=== PATIENT | male | born 1945 | race Caucasian/White ===

== ENCOUNTER → 2017-04-21 08:38 | Outpatient (CLI) | payer OTHER, SELFPAY ==
[2017-04-21 09:54] LABS: AST(SGOT) 15 U/L (15-37); Alanine Aminotransfer ALT/SGPT 11 U/L (16-61); Albumin, Serum 3.6 g/dL (3.2-5.0); Alkaline Phosphatase 76 U/L (45-117); Bilirubin, Direct 0.13 mg/dL (0.00-0.30); Cholesterol 130 mg/dL (200); Globulin 3.9 g/dL (2.2-4.2); High Density Lipoprotein 32 mg/dL; Protein, Total 7.5 g/dL (6.4-8.2); Triglycerides 113 mg/dL; Very Low Density Lipoprotein 23 mg/dL (5-40)
== END ==
PROVIDERS: Family Provider Family Medicine; PCP Family Medicine; Visit Provider Internal Medicine Cardiovascular Disease
DX: E78.5 Hyperlipidemia, unspecified (principal); Z79.899 Other long term (current) drug therapy
CPT/HCPCS: 36415; 80061; 80076

== ENCOUNTER → 2017-06-28 15:08 | Outpatient (CLI) | payer OTHER, SELFPAY ==
[2017-06-28 16:17] LABS: Anion Gap 7 (5-15); BUN 16 mg/dL (7-18); BUN/Creat Ratio 15.4 RATIO (10-20); Chloride 109 mmol/L (98-107); Creatinine, Serum 1.04 mg/dL (0.70-1.30); EST Glomerular Filtration Rate 75 mL/min (>60); Est Glom Filt Rate - Afr Amer 90 mL/min (>60); Glucose 118 mg/dL (74-106); Magnesium 2.2 mg/dL (1.6-2.6); Potassium 4.3 mmol/L (3.5-5.1); Sodium Level 141 mmol/L (136-145); Thyroid Stim Hormone (TSH) 3.57 uIU/mL (0.358-3.74)
== END ==
PROVIDERS: Family Provider Family Medicine; PCP Family Medicine; Visit Provider Internal Medicine Cardiovascular Disease
DX: I48.0 Paroxysmal atrial fibrillation (principal)
CPT/HCPCS: 36415; 80048; 83735; 84443

== ENCOUNTER → 2017-11-07 08:35 | Outpatient (CLI) | payer OTHER, SELFPAY ==
[2017-11-07 09:37] LABS: AST(SGOT) 17 U/L (15-37); Alanine Aminotransfer ALT/SGPT 13 U/L (16-61); Albumin, Serum 3.5 g/dL (3.2-5.0); Alkaline Phosphatase 73 U/L (45-117); Bilirubin, Direct 0.13 mg/dL (0.00-0.30); Cholesterol 139 mg/dL (200); Globulin 4.3 g/dL (2.2-4.2); High Density Lipoprotein 33 mg/dL; Protein, Total 7.8 g/dL (6.4-8.2); Triglycerides 123 mg/dL; Very Low Density Lipoprotein 25 mg/dL (5-40)
== END ==
PROVIDERS: Family Provider Family Medicine; PCP Family Medicine; Visit Provider Internal Medicine Cardiovascular Disease
DX: E78.5 Hyperlipidemia, unspecified (principal); Z79.899 Other long term (current) drug therapy
CPT/HCPCS: 36415; 80061; 80076

== ENCOUNTER → 2018-03-10 12:21 | Outpatient (CLI) | payer OTHER, SELFPAY ==
[2018-03-10 11:35] VITALS: BMI 42.7
[2018-03-10 12:43] LABS: Absolute Lymphocyte Count 2.59 X10^3/ul (0.83-4.51); Absolute Neutrophil Count 8.4 X10^3/uL (2.0-7.7); Basophil# 0.01 X10^3/uL; Basophil% 0.1 % (0-1); Eosinophil# 0.08 X10^3/uL; Eosinophils% 0.7 % (0-5); Hematocrit 44.4 % (40-54); Hemoglobin 14.2 g/dl (13.0-16.5); Lymphocyte # 2.59 X10^3/ul (4.0); Lymphocyte % 21.4 % (19-41); Mean Corpuscular Volume 87.4 fL (80-94); Mean Platelet Vol. 9.8 fl (6.2-12.0); Monocyte# 0.85 X10^3/uL; Neutrophil # 8.43 X10^3/uL (2.7-7.7); Neutrophil % 69.5 % (47-70); Platelet Count 271 K/mm3 (150-450); RBC Distribution Width SD 41.2 fl (35.1-43.9); Red Blood Count 5.08 M/mm3 (4.6-6.2); White Blood Count 12.1 K/mm3 (4.4-11.0)
[2018-03-10 12:45] LABS: POSITIVE COUNT NO; POSITIVE DIFFERENTIAL NO; POSITIVE MORPHOLOGY NO
[2018-03-10 13:08] LABS: Anion Gap 4 (5-15); BUN 17 mg/dL (7-18); BUN/Creat Ratio 16.3 RATIO (10-20); Calcium,Total 8.5 mg/dL (8.5-10.1); Chloride 106 mmol/L (98-107); Creatinine, Serum 1.04 mg/dL (0.70-1.30); EST Glomerular Filtration Rate 75 mL/min (>60); Est Glom Filt Rate - Afr Amer 90 mL/min (>60); Glucose 114 mg/dL (74-106); Potassium 4.3 mmol/L (3.5-5.1); Sodium Level 141 mmol/L (136-145)
[2018-03-10 13:14] LABS: BNP,B-Type NATRIURETIC PEPTIDE 401.3 pg/mL (0-100)
== END ==
PROVIDERS: Family Provider Family Medicine; PCP Family Medicine; Referring Provider Nurse Practitioner Family; Visit Provider Nurse Practitioner Family
DX: I25.5 Ischemic cardiomyopathy (principal); R06.09 Other forms of dyspnea; R07.9 Chest pain, unspecified; R60.9 Edema, unspecified
CPT/HCPCS: 36415; 80048; 83880; 84484; 85025

== ENCOUNTER → 2018-07-04 09:08 | Outpatient (CLI) | payer OTHER, SELFPAY ==
[2018-06-29 11:24] VITALS: BMI 42.0
[2018-07-04 13:14] LABS: AST(SGOT) 15 U/L (15-37); Alanine Aminotransfer ALT/SGPT 12 U/L (16-61); Albumin, Serum 3.6 g/dL (3.2-5.0); Alkaline Phosphatase 68 U/L (45-117); Bilirubin, Direct 0.13 mg/dL (0.00-0.30); Cholesterol 136 mg/dL (200); Globulin 4.1 g/dL (2.2-4.2); High Density Lipoprotein 34 mg/dL; Protein, Total 7.7 g/dL (6.4-8.2); Triglycerides 102 mg/dL; Very Low Density Lipoprotein 20 mg/dL (5-40)
== END ==
PROVIDERS: Family Provider Family Medicine; PCP Family Medicine; Referring Provider Internal Medicine Cardiovascular Disease; Visit Provider Internal Medicine Cardiovascular Disease
DX: E78.00 Pure hypercholesterolemia, unspecified (principal)
CPT/HCPCS: 36415; 80061; 80076

== ENCOUNTER → 2018-11-06 12:18 | Outpatient (CLI) | payer MEDICARE, SELFPAY ==
[2018-11-06 12:11] VITALS: BMI 42.0
== END ==
PROVIDERS: Family Provider Family Medicine; PCP Family Medicine; Referring Provider Nurse Practitioner Family; Visit Provider Nurse Practitioner Family
DX: I25.10 Atherosclerotic heart disease of native coronary artery without angina pectoris (principal); R07.9 Chest pain, unspecified; I25.5 Ischemic cardiomyopathy; I10 Essential (primary) hypertension; Z95.1 Presence of aortocoronary bypass graft
CPT/HCPCS: 36415; 84484

== ENCOUNTER 2019-02-10 15:13 | Inpatient (IN) | payer MEDICARE, OTHER, SELFPAY ==
[2019-01-23 12:00] VITALS: BMI 41.5
[2019-02-10] VITALS (14 sets, daily range): BP systolic 87–180; BP diastolic 65–155; PULSE 62–133; RESP 14–20; TEMP 36.4–36.6; O2SAT 91–96; BMI 40.6; BMI 42.7; BMI 42.8
--- NOTE | 2019-02-10 15:25 | RAD_ITS ---
STUDY: X-RAY CHEST REASON FOR EXAM: Male, 73 years old. HEART RATE RUNNING HIGH. HAS BEEN SHOCKED BY HIS DEFIBRILLATOR MULTIPLE TIMES -- HX CHF, SC, STENTS, QUAD CABG TECHNIQUE: AP COMPARISON: 06/07/2015 FINDINGS: EKG leads project over the chest. Cardiac conduction device is stable. Sternal wires and mediastinal surgical clips compatible with prior CABG. Atrial appendage clip noted. The lungs are clear and expanded. There is no demonstrated pleural abnormality. Normal size heart. Normal mediastinum and oksana. Normal visualized pulmonary arteries. There is atherosclerotic tortuosity of the aortic arch and descending thoracic aorta. No acute bony process. There is no demonstrated abnormality of the visualized soft tissue structures of the upper abdomen. RAD/Chest 1 View (Portable) IMPRESSION: Stable, nonacute portable x-ray examination of the chest. Electronically Signed: Cuco Mistry MD (Brooks) at 16:00 EST , Service support ,
--- NOTE | 2019-02-10 15:25 | EKG12_ITS ---
Test Reason : AICD FIRED Blood Pressure : / mmHG Vent. Rate : 161 BPM Atrial Rate : 170 BPM P-R Int : 000 ms QRS Dur : 072 ms QT Int : 302 ms P-R-T Axes : 000 022 073 degrees QTc Int : 494 ms Atrial fibrillation with rapid ventricular response with premature ventricular or aberrantly conducte d complexes Nonspecific ST abnormality Abnormal ECG Confirmed by GIA BENNETT, TIMOTHY ([id number]), sound editor JC [place] ([id number]) on 02/13/2019 10:00:10 AM Referred By: NORMA Confirmed By:TIMOTHY NIELSEN MD
--- NOTE | 2019-02-10 15:30 | ED.DCSUM_ITS ---
- ER Visit Summary Date of Service: 02/10/19 Chief Complaint: AICD fired History of Present Illness: The patient is a 73 M with a history of a [place] AICD placed in [facility] about 6 years ago. He has a history of paroxysmal atrial fibrillation, V. fib, cardiomyopathy, coronary disease, CHF, hypert ension, and hyperlipidemia. He takes aspirin as well as Xarelto daily. He says he is compliant with Xarelto but sometimes does not take aspirin. Today he forgot to take his Toprol and sotalol this morning. He felt a little funny and so he took his medicine around 3 PM, shortly prior to arrival. After he took his medication his AICD fired 1 time. He currently has no symptoms. Physical Examination: Afebrile and vital signs unremarkable except for a blood pressure of 180/155 and heart rate of 133. Patient is alert and oriented and in no acute distress. Heart irregularly irregular and tachycardic. Lungs clear. Abdomen soft. Extremities nontender. Strong equal pulses. Skin appears unremarkable. Test Results: EKG shows atrial fibrillation with a rate of [address] segment changes. Laboratory studies and chest x-ray are pending. Emergency Department Course and Treatment: Patient was placed on a monitor. Treated with a fluid bolus 500 cc and IV metoprolol. Will interrogate the pacemaker. Will check labs and x-ray as well. Workup was all fairly unremarkable. Metoprolol did not change his heart rate or rhythm. She was discussed with Dr. Ponce. Patient gave consent for cardioversion. He was sedated with propofol. He tolerated this well. He was cardioverted up to 360 J but remained in atrial fibrillation with RVR. Patient was discussed with Dr. Ponce again he started on Cardizem. Hospitalist will admit for further care. Treatment Plan: As above Disposition: Admission Impression: A. fib with RVR This note was generated with [employer] dictation software. It may contain incorrect words, spelling, and punctuation that were not noted in review of the chart prior to signing ED Disposition - Plan for ED Patient: Referrals: Trell Edwards MD [Primary Care Provider] -
[2019-02-10] MEDS: Aspirin 81 MG TAB.CHEW 324 MG PO (15:39)
[2019-02-10 15:40] LABS: Absolute Lymphocyte Count 2.32 X10^3/uL (0.83-4.51); Absolute Neutrophil Count 4.1 X10^3/uL (2.0-7.7); Basophil# 0.03 X10^3/uL; Basophil% 0.4 % (0-1); Eosinophil# 0.18 X10^3/uL; Eosinophils% 2.4 % (0-5); Hematocrit 45.1 % (40-54); Hemoglobin 15.2 g/dL (13.0-16.5); Lymphocyte # 2.32 X10^3/ul (4.0); Lymphocyte % 31.5 % (19-41); Mean Corp Hgb Conc 33.7 g/dL (32-36); Mean Corpuscular Hgb 29.2 pg (27.0-32.0); Mean Corpuscular Volume 86.6 fL (80-94); Monocyte# 0.74 X10^3/uL; NRBC Flagged by Analyzer 0 % (0-5); Neutrophil # 4.06 X10^3/uL (2.7-7.7); Neutrophil % 55.2 % (47-70); Platelet Count 160 K/mm3 (150-450); RBC Distribution Width CV 13.2 % (11.6-14.6); Red Blood Count 5.21 M/mm3 (4.6-6.2); White Blood Count 7.4 K/mm3 (4.4-11.0)
[2019-02-10] MEDS: Metoprolol Tartrate 5 MG/5 ML Vial IV ×3 (15:40→16:03)
[2019-02-10 15:53] LABS: Anion Gap 6 (5-15); BUN 15 mg/dL (7-18); BUN/Creat Ratio 12.6 RATIO (10-20); Calcium,Total 8.7 mg/dL (8.5-10.1); Chloride 109 mmol/L (98-107); Creatinine, Serum 1.19 mg/dL (0.70-1.30); EST Glomerular Filtration Rate 64 mL/min (>60); Est Glom Filt Rate - Afr Amer 77 mL/min (>60); Estimated Creatinine Clearance 60.68 ml/min; Glucose 131 mg/dL (74-106); Magnesium 1.8 mg/dL (1.6-2.6); Potassium 3.8 mmol/L (3.5-5.1); Sodium Level 142 mmol/L (136-145)
--- NOTE | 2019-02-10 16:38 | NURSING ---
LISA INTERIGATOR, IS HERE
[2019-02-10] MEDS: dilTIAZem 25 MG/5 ML Vial 20 MG IV BOLUS (18:00)
[2019-02-10] MEDS: Propofol 200 MG/20 ML Vial IV BOLUS (18:00)
--- NOTE | 2019-02-10 18:08 | ED.RN ---
PT WITH AFIB RVR, CARDIOVERSION GIVEN WITH THE FOLLOWIN 50 MG PROPOFOL GIVEN BY DR. BULLOCK 174 150 JOULES DELIVERED WITH SYNCED SHOCK 1746 200 JOULES DELIVERED WITH SYNCED SHOCK 174 30 MG PROPOFOL GIVEN BY DR. BULLOCK 174 250 JOULES DELIVERED WITH SYNCED SHOCK 1755 40 MG PROPOFOL GIVEN BY DR. BULLOCK 175 300 JOULES DELIVERED WITH SYNCED SHOCK 1758 360 JOULES DELIVERED WITH SYNCED SHOCK
--- NOTE | 2019-02-10 18:14 | NURSING ---
PCU AFIB JUNAID
--- NOTE | 2019-02-10 18:33 | PCM.HP.STD ---
History of Present Illness Date of Admission: 02/10/19 Chief Complaint: Afib The patient is a 73 year old M with a PMH as below who presents from a basketball game with Giles schaeffer. He states that he is supposed to be on sotalol and metoprolol twice daily, but he thinks that he forgot last night's dose and he knows that he forgot this morning's dose. He noticed on his iWatch that his heart rate was little bit high and so he went home to take his medications and then when he returned again he was not feeling right and he decided to come to the ER. In the ER he was found to have heart rate sustained in the 150s and cardioversion was attempted multiple times up to 360 J and they were not able to have a successful cardioversion. He was given 3 doses of Lopressor and then was given a 20 mg bolus of Cardizem and started on Cardizem drip. He is not a candidate for amiodarone given his sotalol. Past Medical History Past Medical History (Chronic Problems): Chronic Problems (Last Reviewed 01/23/19 @ 14:32 by Ankur Rascon MD) Dyspnea on exertion (Chronic) Ventricular fibrillation (Chronic) Atherosclerotic heart disease of [place] coronary artery without angina pectoris (Chronic) CABG X 4 - NG-LAD, SVG-D1, SVG-OM1, SVG-RPDA w/ exclusion of SARBJIT w/ 40 mm AtriClip 06/11/15 Ischemic cardiomyopathy (Chronic) History of implantable cardiac defibrillator (ICD) (Chronic 10/01/11) Chronic systolic (congestive) heart failure (Chronic) Supraventricular arrhythmia (Chronic) Paroxysmal atrial fibrillation (Chronic) Essential hypertension (Chronic) Hyperlipidemia (Chronic) Medical History: Medical History (Last Reviewed 01/23/19 @ 14:32 by Ankur Rascon MD) Dyspnea on exertion (Chronic) R06.09 Ventricular fibrillation (Chronic) I49.01 Atherosclerotic heart disease of [place] coronary artery without angina pectoris (Chronic) I25.10 CABG X 4 - NG-LAD, SVG-D1, SVG-OM1, SVG-RPDA w/ exclusion of SARBJIT w/ 40 mm AtriClip 06/11/15 Ischemic cardiomyopathy (Chronic) I25.5 Chronic systolic (congestive) heart failure (Chronic) I50.22 Supraventricular arrhythmia (Chronic) I49.9 Paroxysmal atrial fibrillation (Chronic) I48.0 Essential hypertension (Chronic) I10 Hyperlipidemia (Chronic) E78.5 GERD (gastroesophageal reflux disease) K21.9 Hypothyroidism E03.9 Obstructive sleep apnea G47.33 Other and unspecified peripheral vertigo H81.319 Allergies No Known Allergies Allergy (Verified 02/10/19 15:18) Home Medications: Ambulatory Orders Medication Instructions Recorded Aspirin [Aspirin, Baby] 81 mg PO DAILY@0800 90 Days 08/01/14 tab.chew Nitroglycerin (INPATIENT USE) 0.4 mg SUBLINGUAL Q5M PRN 07/22/15 [Nitrostat] sotalol 120 mg tablet 120 mg PO Q12H #180 tab 04/15/18 levothyroxine 75 mcg tablet 75 mcg PO DAILY #90 tab 10/03/18 losartan 25 mg tablet 25 mg PO DAILY #90 tab 10/17/18 rivaroxaban 20 mg tablet 20 mg PO DAILY #90 tab 10/17/18 omeprazole 20 mg capsule,delayed 20 mg PO DAILY #90 cap 12/15/18 release metoprolol succinate 100 mg 100 mg PO BID #180 tab 12/26/18 tablet,extended release 24 hr rosuvastatin 10 mg tablet 10 mg PO .Mon, Wed, Fri #60 tab 12/26/18 Surgical History: Surgical History (Last Reviewed 01/23/19 @ 14:32 by Ankur Rascon MD) H/O coronary artery bypass surgery (Resolved) Onset Date: 06/11/15 Z95.1 CABG X 4 - NG to LAD, SVG to diag 1, OM & PDA, 06/11/15 History of implantable cardiac defibrillator (ICD) (Chronic) Onset Date: 10/01/11 Surgical History: - - colonosocpies,egd Smoking Status: Never smoker Alcohol: None Drugs: None - *Family History Maternal Family History: Family History (Last Reviewed 01/23/19 @ 14:32 by Ankur Rascon MD) Father CVA (cerebral vascular accident) History Items: - - mother with dementia Paternal Family History: Family History (Last Reviewed 01/23/19 @ 14:32 by Ankur Rascon MD) Father CVA (cerebral vascular accident) History Items: - - father with a cva Review of Systems Constitutional: Denies: Chills, Fever, Weight Change HEENT: Denies: Head Aches, Sinus Congestion, Sinus Drainage Cardiovascular: Reports: Palpitations. Denies: Chest Pain Respiratory: Denies: Cough, Shortness of breath at rest, Sputum production Gastrointestinal: Denies: Abdominal Pain, Nausea, Vomiting Genitourinary: Denies: Dysuria Musculoskeletal: Denies: Joint Pain, Joint Tenderness Skin: Denies: Rash, Wounds Neurological: Denies: Numbness, Tingling, Focal weakness Psychiatric: Denies: Anxiety, Depression Hematologic/ Lymphatic: Denies: Easy Bruising, Easy Bleeding VTE Information - Inpt Only VTE Present on Admission: No - Physical Exam Vitals/I&O's: Vital Signs Temp Pulse Resp BP Pulse Ox 97.9 F 67 18 99/75 96 02/10/19 15:14 02/10/19 18:19 02/10/19 18:19 02/10/19 18:19 02/10/19 18:19 Oxygen Flow Rate (L/min) 2 Oxygen Delivery Method Nasal Cannula Weight: 300 lb Body Mass Index (BMI) 40.6 Intake and Output for Last 24 Hours 02/08/19 02/09/19 02/10/19 23:59 23:59 23:59 Intake Total 500 / 500 Balance 500 / 500 General: Alert, Oriented x3, Cooperative, No apparent distress, - - Altered secondary to the sedation medication provided for cardioversion HEENT: Atraumatic, PERRLA, EOMI, Normocephalic Oral: Moist Mucosa Neck: Supple, No JVD Lungs: Clear to auscultation, Normal air movement, No rhonchi, No wheeze, No rales, Diminished Cardiovascular: Regular rate, Normal S1, Normal S2, No murmurs, - - Irregular rhythm Abdomen: Soft, Non Tender, Non-Distended, No Hepato-splenomegaly Extremities: No edema, Capillary Refill Less than 3 Seconds Skin: No rashes, No breakdown Neurological: Neuro grossly intact, Sensory exam intact to light touch and pain Psych/Mental Status: Normal Affect, Appropriate Laboratory Results 02/10/19 15:25: WBC 7.4, RBC 5.21, Hgb 15.2, Hct 45.1, MCV 86.6, MCH 29.2, MCHC 33.7, RDW Std Deviation 41.0, RDW Coeff of Steven 13.2, Plt Count 160, MPV 10.0, Immature Gran % (Auto) 0.500, Neut % (Auto) 55.2, Lymph % (Auto) 31.5, [place] % (Auto) 10.0, Eos % (Auto) 2.4, Baso % (Auto) 0.4, Absolute Neuts (auto) 4.1, Absolute Lymphs (auto) 2.32, Nucleated RBC % 0 02/10/19 15:25: Sodium 142, Potassium 3.8, Chloride 109 H, Carbon Dioxide 27.0, Anion Gap 6, BUN 15, Creatinine 1.19, Estim Creat Clear Calc 60.68, Est GFR (MDRD) Af Amer 77, Est GFR (MDRD) Non-Af 64, BUN/Creatinine Ratio 12.6, Glucose 131 H, Calcium 8.7, Magnesium 1.8, Troponin I < 0.015 Current Medications Diltiazem HCl 125 mg/ Dextrose 125 mls @ 5 mls/hr IV .Q25H AUBREE; Protocol Last Admin: 02/10/19 18:02 Dose: 5 mg/hr, 5 mls/hr Documented by: Assessment/Plan All Active Problems (Last Reviewed 01/23/19 @ 14:32 by Ankur Rascon MD) H/O coronary artery bypass surgery (Resolved 06/11/15) 1. A. fib with RVR/CAD status post CABG/AICD placement/chronic systolic CHF/HTN/HLD/morbid obesity -Failed cardioversion for his A. fib with RVR, he has responded at least rate hernández to Cardizem -We will resume his home metoprolol and sotalol dosing and continue with Cardizem -Consult to cardiology for evaluation -Plan for echo on Tuesday -We will hold his losartan since we are doing Cardizem, but will continue with his aspirin and his Xarelto as well as his Crestor -BMI of 40.7, lifestyle changes will need to be discussed, placed on a cardiac 1800-calorie diet 2. Hypothyroidism -Stable, will check a TSH in the morning -Continue with his Synthroid dosing 3. GERD -Stable -Continue with PPI DVT: Xarelto Code Visit Inpatient E&M: [id number] Init Hosp L3
[2019-02-11] VITALS (19 sets, daily range): BP systolic 75–144; BP diastolic 52–92; PULSE 59–95; RESP 15–22; TEMP 36.4–36.8; O2SAT 92–98
[2019-02-11] MEDS: Levothyroxine 75 MCG Tablet PO (04:47)
[2019-02-11 07:13] LABS: Absolute Lymphocyte Count 2.17 X10^3/uL (0.83-4.51); Absolute Neutrophil Count 3.7 X10^3/uL (2.0-7.7); Basophil# 0.03 X10^3/uL; Basophil% 0.4 % (0-1); Eosinophil# 0.21 X10^3/uL; Eosinophils% 3.1 % (0-5); Hematocrit 41.7 % (40-54); Hemoglobin 13.9 g/dL (13.0-16.5); Lymphocyte # 2.17 X10^3/ul (4.0); Lymphocyte % 32.5 % (19-41); Mean Corp Hgb Conc 33.3 g/dL (32-36); Mean Corpuscular Hgb 28.8 pg (27.0-32.0); Mean Corpuscular Volume 86.5 fL (80-94); Mean Platelet Vol. 10.3 fl (6.2-12.0); Monocyte# 0.56 X10^3/uL; Monocyte% 8.4 % (0-10); NRBC Flagged by Analyzer 0 % (0-5); Neutrophil # 3.68 X10^3/uL (2.7-7.7); Neutrophil % 55.2 % (47-70); Platelet Count 149 K/mm3 (150-450); RBC Distribution Width CV 13.3 % (11.6-14.6); RBC Distribution Width SD 41.3 fl (35.1-43.9); Red Blood Count 4.82 M/mm3 (4.6-6.2); White Blood Count 6.7 K/mm3 (4.4-11.0)
[2019-02-11 07:43] LABS: Anion Gap 5 (5-15); BUN 11 mg/dL (7-18); BUN/Creat Ratio 13.2 RATIO (10-20); Calcium,Total 8.3 mg/dL (8.5-10.1); Chloride 111 mmol/L (98-107); Creatinine, Serum 0.84 mg/dL (0.70-1.30); EST Glomerular Filtration Rate 96 mL/min (>60); Est Glom Filt Rate - Afr Amer 116 mL/min (>60); Estimated Creatinine Clearance 83.42 ml/min; Glucose 110 mg/dL (74-106); Sodium Level 141 mmol/L (136-145); Thyroid Stim Hormone (TSH) 5.13 uIU/mL (0.358-3.74)
[2019-02-11] MEDS: Rivaroxaban 20 MG Tablet PO (07:51)
[2019-02-11] MEDS: Aspirin 81 MG TAB.CHEW PO (07:51)
--- NOTE | 2019-02-11 09:52 | EKG12_ITS ---
Test Reason : RHYTHM Blood Pressure : / mmHG Vent. Rate : 058 BPM Atrial Rate : 058 BPM P-R Int : 134 ms QRS Dur : 072 ms QT Int : 488 ms P-R-T Axes : 071 -03 044 degrees QTc Int : 479 ms Sinus bradycardia Otherwise normal ECG Confirmed by LORENZA BENNETT, JASSON ([id number]), editor in chief newspaper DEBRA RUSSO ([id number]) on 02/15/2019 11:46:46 AM Referred By: GOOD Confirmed By:JASSON BRITT MD
[2019-02-11] MEDS: Sotalol Hydrochloride 80 MG Tablet 120 MG PO ×2 (09:56→21:14)
[2019-02-11] MEDS: Metoprolol(XL)Succ 100 MG Tablet PO ×2 (09:56→21:14)
[2019-02-11] MEDS: Pantoprazole Sodium 20 MG Tablet PO (09:57)
--- NOTE | 2019-02-11 11:08 | PCM.CONS.C ---
Problem List (1) Dyspnea on exertion Status: Chronic (2) Ventricular fibrillation Status: Chronic (3) Atherosclerotic heart disease of [place] coronary artery without angina pectoris Status: Chronic Qualifiers: [place] vs. transplanted heart: [place] heart Qualified Code(s): I25.10 - Atherosclerotic heart disease of [place] coronary artery without angina pectoris Comment: CABG X 4 - NG-LAD, SVG-D1, SVG-OM1, SVG-RPDA w/ exclusion of SARBJIT w/ 40 mm AtriClip 06/11/15 (4) H/O coronary artery bypass surgery Status: Resolved Comment: CABG X 4 - NG to LAD, SVG to diag 1, OM & PDA, 06/11/15 (5) Ischemic cardiomyopathy Status: Chronic (6) History of implantable cardiac defibrillator (ICD) Status: Chronic (7) Chronic systolic (congestive) heart failure Status: Chronic (8) Supraventricular arrhythmia Status: Chronic (9) Paroxysmal atrial fibrillation Status: Chronic (10) Essential hypertension Status: Chronic (11) Hyperlipidemia Status: Chronic Qualifiers: Hyperlipidemia type: unspecified Qualified Code(s): E78.5 - Hyperlipidemia, unspecified Reason for Consult Date of Consultation: 02/11/19 Reason for Consultation: Ischemic cardiomyopathy, coronary disease, status post CABG, hypertension, hypercholesterolemia, LV dysfunction, paroxysmal atrial fibrillation, status post AICD, rapid atrial fibrillation History of Present Illness: The patient is a 73 year old M, patient of Dr. Rascon's, with a history of hypertension, hyperlipidemia, coronary artery disease status post V. fib arrest about 5 years ago at which time he had a heart catheterization which demonstrated apparently single-vessel coronary disease with an occluded right coronary artery with adequate collaterals from left to right, nonobstructive corn disease and he received an AICD at that time. The patient then returned [facility] with substernal chest pressure and abnormal cardiac enzymes and underwent repeat catheterization by Dr. Rascon on 06/09/2015. At that time he was found to have significant multivessel coronary disease with the following results: 1. Left main coronary artery with mild disease. 2. Left anterior descending artery with moderately severe proximal to mid segment stenosis. 3. Left circumflex artery with proximal high-grade stenosis, dominant right coronary artery, which is totally occluded proximally with distal collaterals. 4. Reduced left ventricular ejection fraction. Patient was referred for four-vessel bypass surgery which took place at [facility] on 06/11/2015. I do not have his graft report at this writing. His most recent echocardiogram from an outside facility demonstrated an EF around 50 to 55% 06/16/2015. In addition the patient has been found to have paroxysmal atrial fibrillation, and has been placed on sotalol and Toprol XL therapy. His arrhythmia has been fairly well controlled until last evening when he was going to a basketball game he noticed that his heart rate was slightly elevated based upon his iPhone watch. As he recalls he forgot to take his metoprolol and sotalol the night before and forgot to take it yesterday morning. In addition he felt as though his defibrillator went off and when his heart rate did not improve he went to the emergency room where he was found to be in rapid atrial fibrillation with a heart rate in the 130s to 150s. As the patient was on anticoagulation with Xarelto, had been compliant with his anticoagulation, he underwent urgent DC cardioversion with several shocks which unfortunately were unsuccessful. He was then admitted on a Cardizem drip, and subsequently converted back to normal sinus rhythm. Patient denied any chest pain, angina, shortness of breath or dyspnea during the time of his rapid heart rate but he is aware when he goes in and out of atrial fibrillation. First troponin was negative. His EKG on admission showed atrial fibrillation with rapid ventricular response, PVC, no acute changes. [] Past Medical History Allergies/Adverse Reactions: Allergies No Known Allergies Allergy (Verified 02/10/19 15:18) Home Medications: Ambulatory Orders Medication Instructions Recorded Nitroglycerin (INPATIENT USE) 0.4 mg SUBLINGUAL Q5M PRN 07/22/15 [Nitrostat] Aspirin [Aspirin, Baby] 81 mg PO DAILY@0800 02/10/19 Levothyroxine Sodium 75 mcg PO DAILY 02/10/19 Losartan Potassium 25 mg PO DAILY 02/10/19 Metoprolol Succinate [Toprol Xl] 100 mg PO BID 02/10/19 Omeprazole 20 mg PO DAILY 02/10/19 Rivaroxaban [Xarelto] 20 mg PO DAILY 02/10/19 Rosuvastatin Calcium 10 mg PO MOWEFR 02/10/19 Sotalol HCl [Sotalol] 120 mg PO Q12H 02/10/19 Past Medical History (Chronic Problems): Chronic Problems (Last Reviewed 01/23/19 @ 14:32 by Ankur Rascon MD) Dyspnea on exertion (Chronic) Ventricular fibrillation (Chronic) Atherosclerotic heart disease of [place] coronary artery without angina pectoris (Chronic) CABG X 4 - NG-LAD, SVG-D1, SVG-OM1, SVG-RPDA w/ exclusion of SARBJIT w/ 40 mm AtriClip 06/11/15 Ischemic cardiomyopathy (Chronic) History of implantable cardiac defibrillator (ICD) (Chronic 10/01/11) Chronic systolic (congestive) heart failure (Chronic) Supraventricular arrhythmia (Chronic) Paroxysmal atrial fibrillation (Chronic) Essential hypertension (Chronic) Hyperlipidemia (Chronic) Surgical History: - - colonosocpies,egd - *Family History Maternal Family History: Family History (Last Reviewed 01/23/19 @ 14:32 by Ankur Rascon MD) Father CVA (cerebral vascular accident) History Items: - - mother with dementia Paternal Family History: Family History (Last Reviewed 01/23/19 @ 14:32 by Ankur Rascon MD) Father CVA (cerebral vascular accident) History Items: - - father with a cva Smoking Status: Never smoker Alcohol: None Drugs: None Review of Systems - Review of Systems General: Denies: Fever, Night Sweats, Fatigue Cardiovascular: Denies: Chest Discomfort, Shortness of Breath, Orthopnea, PND, Peripheral Edema, Palpitations, Lightheadedness, Dizziness, Near Syncope, Syncope Respiratory: Denies: Cough, Sputum Production, Hemoptysis Gastrointestinal: Denies: Hematemesis, Hematochezia, Melena Genitourinary: Denies: Dysuria, Hematuria Skin: Denies: Rash Subjectve: Patient laying in bed, no acute distress. Objective: Vital Signs Temp Pulse Resp BP Pulse Ox 98.0 F 60 17 132/77 H 95 02/11/19 09:56 02/11/19 09:56 02/11/19 09:56 02/11/19 09:56 02/11/19 09:56 Oxygen Flow Rate (L/min) 2 Oxygen Delivery Method Room Air Weight: 306 lb 10.608 oz Body Mass Index (BMI) 42.7 Intake and Output for Last 24 Hours 02/09/19 02/10/19 02/11/19 23:59 23:59 23:59 Intake Total 864.83 / 869.83 205.00 / 205.00 Output Total 400 / 400 250 / 250 Balance 464.83 / 469.83 -45.00 / -45.00 General: Awake, Alert, Oriented x 3 HEENT: PERRL, EOMI, Sclera Non Icteric Neck: Supple, Good ROM, No Lymph Node Enlargement Lungs: Clear to auscultation Cardiovascular: Regular Rhythm, Normal S1, Normal S2, No Murmurs, No Rubs, No Gallops Vascular: No Carotid Bruits, Normal Femoral Pulses, Normal Radial Pulses, Normal Dorsalis Pedal Pulse, Normal Posterior Tibial Pulses Abdomen: Bowel Sounds Present, Soft, Non Tender, No HSM, No Organomegaly Extremities: No Cyanosis, No Clubbing, No edema Neurological: No Focal Motor or Sensory Deficit 02/10/19 15:25: WBC 7.4, RBC 5.21, Hgb 15.2, Hct 45.1, MCV 86.6, MCH 29.2, MCHC 33.7, Plt Count 160, MPV 10.0, Immature Gran % (Auto) 0.500, Neut % (Auto) 55.2, Lymph % (Auto) 31.5, [place] % (Auto) 10.0, Eos % (Auto) 2.4, Baso % (Auto) 0.4, Absolute Neuts (auto) 4.1, Nucleated RBC % 0 02/10/19 15:25: Sodium 142, Potassium 3.8, Chloride 109 H, Carbon Dioxide 27.0, Anion Gap 6, BUN 15, Creatinine 1.19, Est GFR (MDRD) Af Amer 77, Est GFR (MDRD) Non-Af 64, BUN/Creatinine Ratio 12.6, Glucose 131 H, Calcium 8.7, Magnesium 1.8, Troponin I < 0.015 02/11/19 05:55: WBC 6.7, RBC 4.82, Hgb 13.9, Hct 41.7, MCV 86.5, MCH 28.8, MCHC 33.3, Plt Count 149 L, MPV 10.3, Immature Gran % (Auto) 0.400, Neut % (Auto) 55.2, Lymph % (Auto) 32.5, [place] % (Auto) 8.4, Eos % (Auto) 3.1, Baso % (Auto) 0.4, Absolute Neuts (auto) 3.7, Nucleated RBC % 0 02/11/19 05:55: Sodium 141, Potassium 4.0, Chloride 111 H, Carbon Dioxide 25.0, Anion Gap 5, BUN 11, Creatinine 0.84, Est GFR (MDRD) Af Amer 116, Est GFR (MDRD) Non-Af 96, BUN/Creatinine Ratio 13.2, Glucose 110 H, Calcium 8.3 L Rhythm: Telemetry showed atrial fibrillation which converted to normal sinus rhythm. EKG: Pending ECHO: Pending Stress Test: Pending Cardiac Cath: PCI: CT Surgery: Holter monitor: EPS: PPM: CXR: Chest CT Scan: Assessment/Plan 1. Atrial fibrillation: The patient presents with recurrent rapid atrial fibrillation as a result of not taking his sotalol and Toprol as scheduled, refractory to both internal and external DC cardioversion. Patient was placed on a Cardizem drip, given his sotalol and Toprol, and spontaneously converted back to normal sinus rhythm. He is chronic on Xarelto therapy. At this point I would not recommend any changes to his antiarrhythmic therapy and would recommend continuing his sotalol at 120 mg p.o. twice daily, and continuing his Toprol-XL 100 mg p.o. twice daily. In addition I would recommend an update of his LV function with a repeat echocardiogram tomorrow morning, and assuming no overt abnormalities, would recommend a modified Ty treadmill echocardiogram to evaluate his ischemia status post bypass surgery from 2016. Would also recommend obtaining the old records from [facility] to determine the location of his bypass grafts should he require diagnostic coronary angiogram. If his stress test and echocardiogram showed no overt ischemia, I will continue to treat the patient medically with Toprol, sotalol, losartan and Xarelto. In addition his TSH is slightly elevated, I would recommend obtaining a T4. If his T4 is low would recommend low-dose Synthroid 0.088 mcg p.o. daily and repeat TSH and T4 in 4 weeks time. 2. Coronary artery disease: Despite his rapid atrial fibrillation he had no overt anginal or chest pain. Troponin #1 is negative. Recommend obtaining a repeat troponin. Would not recommend a dobutamine stress test and the patient is unable to tolerate a nuclear stress test given claustrophobia. He is agreeable to a modified Ty treadmill echocardiogram tomorrow morning. If this is grossly abnormal, he may require diagnostic coronary angiogram with graft angiography. 3. Hyperlipidemia: Recommend obtaining a vascular profile. His LDL should be less than 70. Continue Crestor therapy. 4. Ischemic cardiomyopathy: The patient is status post AICD implantation several years ago with his initial V. fib arrest. Interrogation last evening report is pending. Patient does have a history of what appeared to be atrial flutter requiring ATP triggering in February 2018. Apparently at that time his sotalol was increased. Would not recommend switching him to amiodarone at this time. 5. Thank you very much for the opportunity to participate in the cardiac care of your patient. Will refer to Dr. Palmer tomorrow morning. Code Visit Inpatient E&M: 20879 Init Hosp L2
--- NOTE | 2019-02-11 11:15 | ECHOCS_ITS ---
Reason For Study: CAD/ASHD Procedure This was a 2D Doppler, Color Flow transthoracic echocardiogram. Contrast injection was performed. Exam performed in department. Left Ventricle Mild concentric left ventricular hypertrophy. The estimated ejection fraction is 40-45 %. Stage 2 diastolic dysfunction. There is moderate global hypokinesis of the left ventricle. Right Ventricle Moderately dilated right ventricle. ICD or pacer leads identified within the right ventricle. Normal systolic function. Atria The left atrium is severely enlarged. The right atrium is mildly enlarged. Normal atrial septum. Mitral Valve Mild diffuse mitral valve thickening. Mild-Moderate (1-2+) mitral valve insufficiency. Tricuspid Valve Normal tricuspid valve. Mild (1+) tricuspid valve insufficiency. Right ventricular systolic pressure estimated to be 40 mmHg. Mild pulmonary hypertension. Aortic Valve Trisinus/trileaflet aortic valve. Mild diffuse aortic valve thickening. Trivial aortic valve insufficiency. Pulmonic Valve The pulmonic valve is not well visualized. Great Vessels Normal aortic root. Normal arch. Normal inferior vena cava. Inferior vena cava collapse with sniff. Pericardium/Pleural No pericardial effusion. Medication Diluted definity 7ml given slow IV push to enhance endocardial definition. MMode/2D Measurements & Calculations LVIDd: 6.0 cm IVSd: 1.3 cm Ao root diam: 3.4 cm LVIDs: 4.3 cm LVPWd: 1.3 cm RVDd: 4.8 cm FS: 28.4 % LAV(MOD-bp): 93.1 ml LVAd ap4: 40.8 cm2 SV(MOD-sp4): 87.6 ml LAV(MOD-bp) Indexed: 36.7 ml/m2 EDV(MOD-sp4): 158.7 ml LAV(MOD-sp2): 94.7 ml EDV(sp4-el): 168.6 ml LAV(MOD-sp4): 83.3 ml LVAs ap4: 25.1 cm2 ESV(MOD-sp4): 71.1 ml ESV(sp4-el): 74.4 ml EF(MOD-sp4): 55.2 % EF(sp4-el): 55.9 % SV(sp4-el): 94.2 ml LA A4 area: 26.1 cm2 LA dimension(2D): 5.1 cm RA A4 area: 20.2 cm2 Doppler Measurements & Calculations MV E max angel: 80.8 cm/sec Lat Peak E' Angel: 8.5 cm/sec Med Peak E' Angel: 4.6 cm/sec MV A max angel: 37.0 cm/sec E/E' lat: 9.6 E/E' med: 17.6 MV E/A: 2.2 Ao V2 max: 98.7 cm/sec LV V1 max: 76.6 cm/sec PA V2 max: 62.6 cm/sec Ao max P.9 mmHg LV V1 max P.3 mmHg Ao V2 mean: 70.6 cm/sec Ao mean P.2 mmHg Ao V2 VTI: 22.1 cm TR max angel: 273.0 cm/sec TR max P.8 mmHg Interpretation Summary Mild concentric left ventricular hypertrophy. The estimated ejection fraction is 40-45 %. There is moderate global hypokinesis of the left ventricle. Moderately dilated right ventricle. The left atrium is severely enlarged. The right atrium is mildly enlarged. Mild-Moderate (1-2+) mitral valve insufficiency. Mild (1+) tricuspid valve insufficiency. Right ventricular systolic pressure estimated to be 40 mmHg. Mild pulmonary hypertension. Trivial aortic valve insufficiency. Stage 2 diastolic dysfunction. The study was technically difficult. Contrast injection was performed. There is no comparison study available. Ordering Physician: Daniel Ponce Referring Physician: Trell Edwards Performed By: Blanca Cordero RDCS, RVT
[2019-02-11 12:43] LABS: Cholesterol 131 mg/dL (200); High Density Lipoprotein 31 mg/dL; T4 Free Direct 1.06 ng/dL (0.76-1.46); Triglycerides 171 mg/dL; Very Low Density Lipoprotein 34 mg/dL (5-40)
--- NOTE | 2019-02-11 17:22 | PCM.PROGNOTE ---
Subjective: Patient was seen and examined today, he remains in sinus rhythm at this time, he is scheduled for a stress echocardiogram tomorrow. Patient was seen in consultation by cardiology today. - Physical Exam Vitals/I&O's: Vital Signs Temp Pulse Resp BP Pulse Ox 98.3 F 62 17 144/90 H 96 02/11/19 14:53 02/11/19 15:23 02/11/19 14:53 02/11/19 14:53 02/11/19 14:53 Oxygen Flow Rate (L/min) 2 Oxygen Delivery Method Room Air Weight: 139.1 kg Body Mass Index (BMI) 42.7 Intake and Output for Last 24 Hours 02/09/19 02/10/19 02/11/19 23:59 23:59 23:59 Intake Total 864.83 / 869.83 830.00 / 830.00 Output Total 400 / 400 450 / 450 Balance 464.83 / 469.83 380.00 / 380.00 General: Alert, Oriented x3, Cooperative, No apparent distress, Well developed HEENT: Atraumatic, PERRLA, EOMI, Normocephalic Oral: Moist Mucosa Neck: Supple, Trachea Midline, Thyroid Normal Size and Texture Lungs: Clear to auscultation, Normal air movement, No rhonchi, No wheeze, No rales Cardiovascular: Regular rate, Regular Rhythm, Normal S1, Normal S2, No murmurs, PMI Normal, No rub noted, No Gallop Abdomen: Bowel Sounds Present, Soft, Non Tender, Non-Distended Extremities: No clubbing, No cyanosis, No edema, Capillary Refill Less than 3 Seconds Skin: No rashes, No breakdown Musculoskeletal: No Tenderness to Palpation of Joints or Extremities Neurological: Cranial nerves II-XII grossly intact, Neuro grossly intact, Sensory exam intact to light touch and pain Psych/Mental Status: Normal Affect, Appropriate, Alert and oriented to time, place, person, mood and affect Laboratory Results 02/11/19 05:55: WBC 6.7, RBC 4.82, Hgb 13.9, Hct 41.7, MCV 86.5, MCH 28.8, MCHC 33.3, RDW Std Deviation 41.3, RDW Coeff of Steven 13.3, Plt Count 149 L, MPV 10.3, Immature Gran % (Auto) 0.400, Neut % (Auto) 55.2, Lymph % (Auto) 32.5, Duchesne % (Auto) 8.4, Eos % (Auto) 3.1, Baso % (Auto) 0.4, Absolute Neuts (auto) 3.7, Absolute Lymphs (auto) 2.17, Nucleated RBC % 0 02/11/19 05:55: Sodium 141, Potassium 4.0, Chloride 111 H, Carbon Dioxide 25.0, Anion Gap 5, BUN 11, Creatinine 0.84, Estim Creat Clear Calc 83.42, Est GFR (MDRD) Af Amer 116, Est GFR (MDRD) Non-Af 96, BUN/Creatinine Ratio 13.2, Glucose 110 H, Calcium 8.3 L, TSH 5.13 H 02/11/19 12:00: Troponin I < 0.015, Triglycerides 171, Cholesterol 131, LDL Cholesterol 66, VLDL Cholesterol 34, HDL Cholesterol 31 L, Free T4 1.06 Current Medications Aspirin (Aspirin, Baby) 81 mg PO DAILY@0800 [facility] Last Admin: 02/11/19 07:51 Dose: 81 mg Documented by: Atorvastatin Calcium (Lipitor) 20 mg PO MoWeFr@2200 [facility] Levothyroxine Sodium (Synthroid) 75 mcg PO DAILY@0600 [facility] Last Admin: 02/11/19 04:47 Dose: 75 mcg Documented by: Metoprolol Succinate (Toprol Xl (Beta Samuel)) 100 mg PO BID [facility] Last Admin: 02/11/19 09:56 Dose: 100 mg Documented by: Pantoprazole Sodium (Protonix) 20 mg PO DAILY [facility] Last Admin: 02/11/19 09:57 Dose: 20 mg Documented by: [facility] Admin: 02/11/19 07:51 Dose: 20 mg Documented by: Sodium Chloride () 10 - 40 ml IV UD PRN PRN Reason: SALINE FLUSH Sotalol HCl (Betapace (G)) 120 mg PO Q12 [facility] Last Admin: 02/11/19 09:56 Dose: 120 mg Documented by: Medical Necessity - Tobacco Use Smoking Status: Never smoker Assessment/Plan All Active Problems (Last Reviewed 01/23/19 @ 14:32 by Ankur Rascon MD) H/O coronary artery bypass surgery (Resolved 06/11/15) #1 paroxysmal atrial fibrillation with rapid ventricular response-now converted to normal sinus rhythm, patient will remain on his present medications, he is being seen by cardiology, he will undergo an echo stress test tomorrow, recommendations to follow results of this test. #2 coronary artery disease #3 morbid obesity #4 ischemic cardiomyopathy #5 essential hypertension #6 hyperlipidemia Code Visit Inpatient E&M: 13649 Subs Hosp L2
[2019-02-12] VITALS (8 sets, daily range): BP systolic 112–137; BP diastolic 65–83; PULSE 52–63; RESP 18; TEMP 36.5–36.7; O2SAT 93–97
--- NOTE | 2019-02-12 04:11 | EKG12_ITS ---
Test Reason : AM EKG Blood Pressure : / mmHG Vent. Rate : 056 BPM Atrial Rate : 056 BPM P-R Int : 132 ms QRS Dur : 080 ms QT Int : 532 ms P-R-T Axes : 052 018 048 degrees QTc Int : 513 ms Sinus bradycardia Prolonged QT Abnormal ECG Confirmed by LORENZA BENNETT, JASSON ([id number]), desk editor DEBRA RUSSO ([id number]) on 02/15/2019 11:27:15 AM Referred By: JUNAID Confirmed By:JASSON BRITT MD
[2019-02-12] MEDS: Aspirin 81 MG TAB.CHEW PO (05:18)
[2019-02-12] MEDS: Pantoprazole Sodium 20 MG Tablet PO (05:18)
[2019-02-12] MEDS: Levothyroxine 75 MCG Tablet PO (05:18)
[2019-02-12] MEDS: 0.9% Saline Lock 10 ML Syringe IV (05:20)
--- NOTE | 2019-02-12 07:38 | PN.CARD_ITS ---
Subjectve: Patient seen and evaluated. Appears to be doing better. Converted to sinus rhythm. Objective: Vital Signs Temp Pulse Resp BP Pulse Ox 97.8 F 59 L 18 126/83 H 93 02/12/19 05:28 02/12/19 07:00 02/12/19 05:28 02/12/19 05:28 02/12/19 05:28 Oxygen Flow Rate (L/min) 2 Oxygen Delivery Method Room Air Weight: 306 lb 10.608 oz Body Mass Index (BMI) 42.7 Intake and Output for Last 24 Hours 02/10/19 02/11/19 02/12/19 23:59 23:59 23:59 Intake Total 864.83 / 869.83 830.00 / 1065.00 235 / 235 Output Total 400 / 400 450 / 975 1600 / 1600 Balance 464.83 / 469.83 380.00 / 90.00 -1365 / -1365 General: Awake, Alert, Oriented x 3 HEENT: PERRL, EOMI, Sclera Non Icteric Neck: Supple, Good ROM, No Lymph Node Enlargement Lungs: Clear to auscultation Cardiovascular: Regular Rhythm, Normal S1, Normal S2, No Murmurs, No Rubs, No Gallops Vascular: No Carotid Bruits, Normal Femoral Pulses, Normal Radial Pulses, Normal Dorsalis Pedal Pulse, Normal Posterior Tibial Pulses Abdomen: Bowel Sounds Present, Soft, Non Tender, No HSM, No Organomegaly Extremities: No Cyanosis, No Clubbing, No edema Musculoskeletal: No Erythema Skin: No Rashes Lymphatic: No Lymph Node Enlargement Neurological: No Focal Motor or Sensory Deficit Psych/Mental Status: Appropriate 02/11/19 05:55: Sodium 141, Potassium 4.0, Chloride 111 H, Carbon Dioxide 25.0, Anion Gap 5, BUN 11, Creatinine 0.84, Est GFR (MDRD) Af Amer 116, Est GFR (MDRD) Non-Af 96, BUN/Creatinine Ratio 13.2, Glucose 110 H, Calcium 8.3 L 02/11/19 12:00: Troponin I < 0.015, Triglycerides 171, Cholesterol 131, LDL Cholesterol 66, VLDL Cholesterol 34, HDL Cholesterol 31 L Rhythm: EKG: ECHO: Stress Test: Cardiac Cath: PCI: CT Surgery: Holter monitor: EPS: PPM: CXR: Chest CT Scan: Medical Necessity - Tobacco Use Smoking Status: Never smoker Assessment/Plan 1. Atrial fibrillation * Patient presented with atrial fibrillation as a result of his not taking his antiarrhythmic as well as his beta-soniya. These have been reinstituted and he converted back to sinus rhythm. * Would recommend medication adherence as well as anticoagulation * Scheduled for an echocardiogram today 2. Coronary artery disease * He is status post coronary artery disease status post previous bypass surgery. At this time my recommendation would be to continue to follow him medically. His cardiac enzymes are normal his EKG is unremarkable. * I do not think that there is an indication for any stress testing at this particular time. * 3. Status post ICD implantation * He had an ICD present for secondary prevention. * His ICD interrogation demonstrated atrial fibrillation with rapid ventricular response rate and atrial flutter with the same and ATP pacing with defibri llator shock. No evidence of VT noted. * Also defibrillator interrogation from 01/25/2019 demonstrates no evidence of atrial fibrillation, atrial flutter, or ventricular tachycardia. * Will continue to follow him in our pacer clinic. He will continue with his anticoagulation * 4. Risk factor modification * He will continue with his current risk factor modification blood pressure treatment and lipid-lowering treatment diet and he is encouraged to exercise * * He can be discharged later today * Thank you for allowing me to participate in the care of your patient. Please don't hesitate to call if any issues arise
--- NOTE | 2019-02-12 10:06 | DCINST_ITS ---
You will use the following diet at home:: Cardiac Your food should be the consistency of: Regular Discharge Activity: May Not Drive - for 2-3 days Weight Bearing Status: Weight bearing as tolerated Call your doctor if you observe: Fever of 101 or Higher, Coldness, Increased Pain, Numbness or Tingling, Inability to urinate, Inability to have a bowel movement, Shortness of breath, Dizziness, Fainting spells, Swelling in the ankles, Chest pain, Prolonged hiccoughing, Calf discomfort, Uncontrolled pain Allergies/Adverse Reactions: Allergies No Known Allergies Allergy (Verified 02/10/19 15:18) Medications to take at Discharge Nitroglycerin (INPATIENT USE) [Nitrostat] 0.4 mg SUBLINGUAL Q5M PRN 07/22/15 Aspirin [Aspirin, Baby] 81 mg PO DAILY@0800 02/10/19 Levothyroxine Sodium 75 mcg PO DAILY 02/10/19 Metoprolol Succinate [Toprol Xl] 100 mg PO BID 02/10/19 Omeprazole 20 mg PO DAILY 02/10/19 Rivaroxaban [Xarelto] 20 mg PO DAILY 02/10/19 Rosuvastatin Calcium 10 mg PO MOWEFR 02/10/19 Sotalol HCl [Sotalol] 120 mg PO Q12H 02/10/19 Losartan Potassium 25 mg PO DAILY #0 02/12/19 Primary Care Physician: Trell Edwards MD [Primary Care Provider] - Please follow up with your Primary Care Physician in: in 2 week Test Results: Test results from this visit will be discussed in further detail at your follow- up appointment, if applicable. Please Follow Up With: Madeleine Núñez NP-C Please Follow Up With: Ankur Rascon MD When: in 3-4 week
--- NOTE | 2019-02-12 10:08 | DS.PCM_ITS ---
Discharge Date and Diagnosis Date of Admission: 02/10/19 Date of Discharge: 02/12/19 - Secondary Discharge Diagnosis Chronic Problems (Last Reviewed 01/23/19 @ 14:32 by Ankur Rascon MD) Dyspnea on exertion (Chronic) Ventricular fibrillation (Chronic) Atherosclerotic heart disease of [place] coronary artery without angina pectoris (Chronic) CABG X 4 - NG-LAD, SVG-D1, SVG-OM1, SVG-RPDA w/ exclusion of SARBJIT w/ 40 mm AtriClip 06/11/15 Ischemic cardiomyopathy (Chronic) History of implantable cardiac defibrillator (ICD) (Chronic 10/01/11) Chronic systolic (congestive) heart failure (Chronic) Supraventricular arrhythmia (Chronic) Paroxysmal atrial fibrillation (Chronic) Essential hypertension (Chronic) Hyperlipidemia (Chronic) Hospital Course and Treatment Operations: None Summary of Care Provided: The patient is a 73 year old M with history of A. fib was admitted with A. fib with RVR. Patient on sotalol and metoprolol. In the ER his heart rate was found in 150s and cardioversion was attempted multiple times up to 360 J unsuccessfully. Patient was further admitted after 3 doses of Lopressor and 20 mg IV bolus of Cardizem on Cardizem drip. [] #1 paroxysmal atrial fibrillation with rapid ventricular response: Mostly secondary to noncompliance: She is converted to normal sinus rhythm. On metoprolol and sotalol. Patient was seen by energy advisor. Patient had 2D echo done today. Echo was suggestive of chronic systolic and diastolic heart failure along with mild pulmonary hypertension and right ventricular failure status post AICD. Continue Xarelto. Echo reported as: Mild concentric left ventricular hypertrophy. The estimated ejection fraction is 40-45 %. There is moderate global hypokinesis of the left ventricle. Moderately dilated right ventricle. The left atrium is severely enlarged. The right atrium is mildly enlarged. Mild-Moderate (1-2+) mitral valve insufficiency. Mild (1+) tricuspid valve insufficiency. Right ventricular systolic pressure estimated to be 40 mmHg. Mild pulmonary hypertension. Trivial aortic valve insufficiency. Stage 2 diastolic dysfunction. The study was technically difficult. Contrast injection was performed. There is no comparison study available. #2 coronary artery disease: On patient home medications continued. Cardiac enzymes are normal. No significant ST-T changes suggestive of ischemia. #3 morbid obesity #4 ischemic cardiomyopathy #5 essential hypertension #6 hyperlipidemia Discharge medication reconciliation done. Discharge follow-up instructions completed. Discharge process discussed with the patient and all questions were answered to patient's satisfaction.. Total time spent, exact 35 minutes on discharge meds reconciliation, examination, review of imaging and blood test and discussion with the patient on follow-up instructions. Subjective: Patient was seen and examined. Patient was admitted with A. laury with RVR. Heart rate is controlled. Patient had echo in the morning. Denies any shortness of breath or chest pain. Patient wants to go home. - Physical Exam Vitals/I&O's: Vital Signs Temp Pulse Resp BP Pulse Ox 97.8 F 59 L 18 126/83 H 93 02/12/19 05:28 02/12/19 07:00 02/12/19 05:28 02/12/19 05:28 02/12/19 05:28 Oxygen Flow Rate (L/min) 2 Oxygen Delivery Method Room Air Weight: 306 lb 10.608 oz Body Mass Index (BMI) 42.7 Intake and Output for Last 24 Hours 02/10/19 02/11/19 02/12/19 23:59 23:59 23:59 Intake Total 864.83 / 869.83 830.00 / 1065.00 235 / 235 Output Total 400 / 400 450 / 975 1600 / 1600 Balance 464.83 / 469.83 380.00 / 90.00 -1365 / -1365 General: Alert, Oriented x3, Cooperative HEENT: Atraumatic, PERRLA, EOMI, Normocephalic Neck: Supple, No JVD, Negative Carotid Bruits Lungs: Clear to auscultation, Normal air movement Cardiovascular: Regular rate, Regular Rhythm, Normal S1, Normal S2, No murmurs, - - Right subclavicular AICD. Abdomen: Bowel Sounds Present, Soft, Non Tender, Non-Distended Extremities: Capillary Refill Less than 3 Seconds, Edema Skin: No rashes, No breakdown Musculoskeletal: No Tenderness to Palpation of Joints or Extremities, Arthritic Changes Neurological: Cranial nerves II-XII grossly intact Psych/Mental Status: Normal Affect, Appropriate Laboratory Results 02/11/19 12:00: Troponin I < 0.015, Triglycerides 171, Cholesterol 131, LDL Cholesterol 66, VLDL Cholesterol 34, HDL Cholesterol 31 L, Free T4 1.06 Current Medications Aspirin (Aspirin, Baby) 81 mg PO DAILY@0800 [facility] Last Admin: 02/12/19 05:18 Dose: 81 mg Documented by: Atorvastatin Calcium (Lipitor) 20 mg PO MoWeFr@2200 [facility] Levothyroxine Sodium (Synthroid) 75 mcg PO DAILY@0600 [facility] Last Admin: 02/12/19 05:18 Dose: 75 mcg Documented by: Metoprolol Succinate (Toprol Xl (Beta Samuel)) 100 mg PO BID [facility] Last Admin: 02/12/19 03:56 Dose: Not Given Documented by: Pantoprazole Sodium (Protonix) 20 mg PO DAILY [facility] Last Admin: 02/12/19 05:18 Dose: 20 mg Documented by: Rivaroxaban (Xarelto) 20 mg PO DAILYCM [facility] Last Admin: 02/12/19 03:55 Dose: Not Given Documented by: Sodium Chloride () 10 - 40 ml IV UD PRN PRN Reason: SALINE FLUSH Last Admin: 02/12/19 05:20 Dose: 10 ml Documented by: Sotalol HCl (Betapace (G)) 120 mg PO Q12 [facility] Last Admin: 02/12/19 03:56 Dose: Not Given Documented by: Discharge Activity: May Not Drive - for 2-3 days Weight Bearing Status: Weight bearing as tolerated Call your doctor if you observe: Fever of 101 or Higher, Coldness, Increased Pain, Numbness or Tingling, Inability to urinate, Inability to have a bowel movement, Shortness of breath, Dizziness, Fainting spells, Swelling in the ankles, Chest pain, Prolonged hiccoughing, Calf discomfort, Uncontrolled pain Home Medications: Medications to take at Discharge Nitroglycerin (INPATIENT USE) [Nitrostat] 0.4 mg SUBLINGUAL Q5M PRN 07/22/15 Aspirin [Aspirin, Baby] 81 mg PO DAILY@0800 02/10/19 Levothyroxine Sodium 75 mcg PO DAILY 02/10/19 Metoprolol Succinate [Toprol Xl] 100 mg PO BID 02/10/19 Omeprazole 20 mg PO DAILY 02/10/19 Rivaroxaban [Xarelto] 20 mg PO DAILY 02/10/19 Rosuvastatin Calcium 10 mg PO MOWEFR 02/10/19 Sotalol HCl [Sotalol] 120 mg PO Q12H 02/10/19 Losartan Potassium 25 mg PO DAILY #0 02/12/19 Primary Care Physician: Trell Edwards MD [STAFF PHYSICIAN] - Please follow up with your Primary Care Physician in: in 2 week Please Follow Up With: Madeleine Núñez NP-C Please Follow Up With: Ankur Rascon MD When: in 3-4 week Medical Necessity - Tobacco Use Smoking Status: Never smoker Meaningful Use Info Meaningful Use Diagnoses (Choose all that apply): None applicable Code Visit Inpatient E&M: 89406 Disch Hosp
[2019-02-12] MEDS: Metoprolol(XL)Succ 100 MG Tablet PO (10:32)
[2019-02-12] MEDS: Sotalol Hydrochloride 80 MG Tablet 120 MG PO (10:32)
--- NOTE | 2019-02-12 10:33 | CASEMGMT ---
JIN BECKFORD assessment: Face to Face with patient for initial transition planning/care coordination assessment. JIN BECKFORD introduced self and role at [facility], pt voices understanding and consents to assessment at this time. Pt is sitting up in bed in no distress at this time. Pt is A/Ox4 at this time and answers all questions appropriately at this time. Care providers, pharmacy, and demographics verified at this time. Presentation: Pt states did not take meds in the am, states HR high and states had been 'shocked by debrillator multiple times.' Admitting dx: Afib RVR PCP: Yoni-pt states is switching from [facility] Specialists: Tarah, cardio; kayleen Dowell Preferred Pharmacy: [facility] Insurance: [facility] A/B, AARP Prescription Benefit: [employer] Living Will/HPOA: Pt states does not have LW/HPOA and declines info at this time. LNOK: Nicole Ponce, ; Bozena Weller, daughter Living Arrangements: Pt states lives with in 2 story home and states no concerns at home at this time. Pt states bedroom is on the 1st floor but his bathroom is on 2nd floor and states no concerns with stairs. Pt states is independent with ADL's. Transportation: Pt states drives self and states no transportation concerns at this time. DME/HHC: Pt states has a cpap and buys own supplies out of pocket. Pt states no need for any further DME at this time. Pt states did have HHC set up s/p bypass surgery and pt states no hx of SNF. Pt states no concerns with going home at time of discharge. Pt states is retired. Pt states does not smoke and rarely drinks ETOH. Pt states no further concerns/needs at this time. CM to follow for any further discharge planning/needs. Advised pt to ask for CM if any further questions/concerns/needs arise, voices understanding. Pt Goal: Home Plan[place]EC[place]
--- NOTE | 2019-02-12 10:43 | PHA.DC.MR ---
Pharmacy Service has performed discharge medication reconciliation for this patient. Home Medications Nitroglycerin (INPATIENT USE) [Nitrostat] 0.4 mg SUBLINGUAL Q5M PRN 07/22/15 Aspirin [Aspirin, Baby] 81 mg PO DAILY@0800 02/10/19 Levothyroxine Sodium 75 mcg PO DAILY 02/10/19 Metoprolol Succinate [Toprol Xl] 100 mg PO BID 02/10/19 Omeprazole 20 mg PO DAILY 02/10/19 Rivaroxaban [Xarelto] 20 mg PO DAILY 02/10/19 Rosuvastatin Calcium 10 mg PO MOWEFR 02/10/19 Sotalol HCl [Sotalol] 120 mg PO Q12H 02/10/19 Losartan Potassium 25 mg PO DAILY #0 02/12/19 The patient's discharge medication list was reviewed for discrepancies and discrepancies were resolved.
--- NOTE | 2019-02-16 15:28 | CASEMGMT ---
JIN BECKFORD Discharge Follow-Up Phone Call. Madina: Kimberly Strata: 3 Discharge Date: 02/12/19 Adm Dx: A-fib/RVR Call to pt to inquire about how he has been doing since being discharged from the hospital. Pt states he is doing fine. He states his insurance changed at the beginning of the year and Dr Edwards is not in-network with his new insurance now. He states he will be seeing Dr Vallejo as his PCP now and has a new-patient appt scheduled for 03/22. JIN BECKFORD encouraged him to call Dr Vallejo's office to inquire if he could get in to see Dr Vallejo sooner d/t he was just in the hospital and hospitalist wrote instructions to follow up with PCP w/in 2 weeks. Pt states he does not feel the need to see his PCP any sooner than 03/22. He states he as an appt with Dr Rascon for 03/16 and plans on going to that. He denies having any questions about the discharge instructions, medications, or any other needs/concerns. JIN BECKFORD thanked pt for choosing [facility]. Heather RICHARDSON RN, CM
== END 2019-02-12 15:31 | disposition home or self-care (01) | DRG 309 ==
LOC: ED 15:47 → PCU 18:38
PROVIDERS: Internal Medicine Cardiovascular Disease; Admitting Provider Family Medicine; Emergency Provider Emergency Medicine; Family Provider Internal Medicine; PCP Internal Medicine; Visit Provider Internal Medicine
DX: I48.0 Paroxysmal atrial fibrillation (principal); I50.42 Chronic combined systolic (congestive) and diastolic (congestive) heart failure; Z68.41 Body mass index [BMI] 40.0-44.9, adult; E78.5 Hyperlipidemia, unspecified; I11.0 Hypertensive heart disease with heart failure; E03.9 Hypothyroidism, unspecified; Z95.810 Presence of automatic (implantable) cardiac defibrillator; Z95.1 Presence of aortocoronary bypass graft; I25.10 Atherosclerotic heart disease of native coronary artery without angina pectoris; Z79.82 Long term (current) use of aspirin; Z79.01 Long term (current) use of anticoagulants; I25.5 Ischemic cardiomyopathy; I27.20 Pulmonary hypertension, unspecified; I08.1 Rheumatic disorders of both mitral and tricuspid valves; E66.01 Morbid (severe) obesity due to excess calories
CPT/HCPCS: 36415; 71045; 80048; 80061; 83735; 84439; 84443; 84484; 85025; 92960; 93005; 93306; 99285; J7030; Q9957; A4216; C8929

== ENCOUNTER 2020-06-28 17:50 | Emergency (ER) | payer MEDICARE, SELFPAY ==
[2019-03-16 10:44] VITALS: BMI 42.8
[2020-06-28 17:50] VITALS: BP 166/107; PULSE 63; RESP 18; TEMP 36.2; O2SAT 95; BMI 39.8
--- NOTE | 2020-06-28 18:28 | EKG12_ITS ---
Test Reason : ABD PAIN Blood Pressure : / mmHG Vent. Rate : 067 BPM Atrial Rate : 067 BPM P-R Int : 140 ms QRS Dur : 078 ms QT Int : 504 ms P-R-T Axes : 068 008 055 degrees QTc Int : 532 ms Sinus rhythm with Premature atrial complexes with Aberrant conduction Prolonged QT Abnormal ECG Confirmed by GIA BENNETT, TIMOTHY ([id number]), editorial project manager JC [place] ([id number]) on 07/01/2020 9:26:21 AM Referred By: JESUS Confirmed By:TIMOTHY NIELSEN MD
[2020-06-28 18:32] VITALS: PULSE 65; RESP 14
[2020-06-28 18:50] LABS: Absolute Neutrophil Count 6.9 X10^3/uL (2.0-7.7); Basophil# 0.04 X10^3/uL; Basophil% 0.4 % (0-1); Eosinophil# 0.15 X10^3/uL; Eosinophils% 1.5 % (0-5); Hematocrit 45.7 % (40-54); Hemoglobin 15.1 g/dL (13.0-16.5); Lymphocyte % 19.6 % (19-41); Mean Corpuscular Hgb 28.4 pg (27.0-32.0); Mean Corpuscular Volume 86.1 fL (80-94); Mean Platelet Vol. 10.1 fl (6.2-12.0); Monocyte# 0.67 X10^3/uL; Monocyte% 6.9 % (0-10); NRBC Flagged by Analyzer 0 % (0-5); Neutrophil # 6.91 X10^3/uL (2.7-7.7); Neutrophil % 71.3 % (47-70); Platelet Count 183 K/mm3 (150-450); RBC Distribution Width CV 13.2 % (11.6-14.6); RBC Distribution Width SD 40.5 fl (35.1-43.9); Red Blood Count 5.31 M/mm3 (4.6-6.2); White Blood Count 9.7 K/mm3 (4.4-11.0)
[2020-06-28] MEDS: 0.9% Normal Saline 1,000 ML 150 ML IV (19:10)
[2020-06-28] MEDS: Morphine 4 MG/ML Syringe IV (19:12)
[2020-06-28] MEDS: Metoclopramide 10 MG/2 ML Vial 5 MG IV (19:12)
[2020-06-28 19:18] LABS: AST(SGOT) 13 U/L (15-37); Alanine Aminotransfer ALT/SGPT 14 U/L (16-61); Albumin, Serum 3.8 g/dL (3.2-5.0); Alkaline Phosphatase 80 U/L (45-117); Anion Gap 7 (5-15); BUN 19 mg/dL (7-18); BUN/Creat Ratio 15.3 RATIO (10-20); Bilirubin, Direct 0.23 mg/dL (0.00-0.30); Calcium,Total 9.3 mg/dL (8.5-10.1); Chloride 106 mmol/L (98-107); Creatinine, Serum 1.24 mg/dL (0.70-1.30); EST Glomerular Filtration Rate 60 mL/min (>60); Est Glom Filt Rate - Afr Amer 73 mL/min (>60); Estimated Creatinine Clearance 55.67 ml/min; Globulin 4.5 g/dL (2.2-4.2); Glucose 121 mg/dL (74-106); Lipase 121 U/L (73-393); Potassium 3.8 mmol/L (3.5-5.1); Protein, Total 8.3 g/dL (6.4-8.2); Sodium Level 141 mmol/L (136-145)
--- NOTE | 2020-06-28 19:42 | ED.RN ---
spo2 drops to 87-89% while sleeping. Pt sts this is normal for him. Placed on 2L NC
[2020-06-28 19:44] VITALS: BP 142/83; PULSE 67; RESP 14; O2SAT 97
[2020-06-28 20:12] LABS: Bacteria 0 SEEN /hpf (None Seen); Color, Urine Yellow (Yellow); Glucose, Dipstick Normal (Normal); Ketone-Dipstick 15 mg/dl (Negative); Leukocyte Esterase-Dipstick 25 /ul (Negative); Mucous, Urine 0 SEEN /hpf (<or=2+); Nitrite-Dipstick Negative (Negative); Occult Blood-Urine 250 /ul (Negative); Protein-Dipstick 30 mg/dl (Negative); Urine Bilirubin Dipstick Negative (Negative); Urine Clarity Cloudy (Clear); Urine Urobilinogen 1 mg/dl (Normal)
[2020-06-28 20:23] LABS: Red Blood Cells-Urine > 100 SEEN /hpf (0-5)
[2020-06-28 20:25] LABS: Squamous Epithelial Cells - UA 0-5 SEEN /hpf (0-5); White Blood Cells 0-5 SEEN /hpf (0-5)
--- NOTE | 2020-06-28 21:19 | CT_ITS ---
STUDY: CT ABDOMEN AND PELVIS WITHOUT CONTRAST REASON FOR EXAM: Male, 74 years old. Right-sided pain. Hypertension. Hypothyroid. Kidney stones. CABG. TECHNIQUE: Transaxial images were obtained from the dome of the diaphragm to the symphysis pubis without oral contrast, and without intravenous contrast. Sagittal and coronal images were reconstructed. Individualized dose optimization techniques were used for this CT. COMPARISON: 10/22/2016 CT abdomen and pelvis. FINDINGS: Partially visualized lower chest: Mild cardiomegaly, implanted cardiac device leads, sternotomy wires partially visible. Mild subsegmental atelectasis posterior lung bases. Liver: No concerning lesions. Gallbladder and biliary tree: No visible gallstones. No pericholecystic inflammation. No biliary ductal dilation. Pancreas: No pancreatic lesions or inflammation. Spleen: Normal size, no splenic lesions. Adrenal glands: No concerning masses. Kidneys and ureters: 5 mm proximal right ureteral stone with mild hydronephrosis. No residual stones. Normal left kidney and left ureter. Bowel: No obstruction or inflammation of the bowel. Scattered sigmoid colon diverticula, no diverticulitis. Urinary bladder: Nondistended. No stones. Reproductive: Moderately enlarged prostate. Vascular: No abdominal aortic aneurysm. Retroperitoneal and peritoneal spaces: No ascites or free air. No retroperitoneal lesions. Osseous: No acute osseous abnormality. Degenerative changes lumbar spine. Abdominal and pelvic wall: No concerning findings. CT/Abdomen/Pelvis without Cont IMPRESSION: 5 mm proximal right ureteral stone with mild hydronephrosis. Electronically Signed: Anam Lea MD at 22:50 EDT Tel , Service support ,
[2020-06-28 21:23] VITALS: BP 121/76; PULSE 69; RESP 16; O2SAT 94
--- NOTE | 2020-06-28 23:04 | EX.ED.DYSGE1 ---
HPI History of Present Illness Chief Complaint: Abd Pain Informant: patient and spouse/S.O. Onset/Context/Timing Onset: Days Context: Gradual Onset Timing: Waxes and wanes Current Severity: Moderate Maximum Severity: Moderate Narrative Narrative: Patient presents with right-sided abdominal pain for the past 2 days. He reports having dry heaves. He feels like he is constipated and not passing gas. He does break out in sweats but has not had fever or chills. Patient denies any prior abdominal surgeries. 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 (congestive heart failure) Dyspnea on exertion Essential hypertension GERD (gastroesophageal reflux disease) Hyperlipidemia Hypothyroidism Ischemic cardiomyopathy Obstructive sleep apnea Other and unspecified peripheral vertigo Paroxysmal atrial fibrillation Sudden cardiac (2011) Supraventricular arrhythmia Ventricular fibrillation Home Medications nitroglycerin 0.4 mg SUBLINGUAL Q5M PRN 07/22/15 [History Last Taken Unknown] aspirin 81 mg PO DAILY@0800 02/10/19 [History Last Taken 02/09/19] levothyroxine 75 mcg PO DAILY 02/10/19 [History Last Taken 02/09/19] metoprolol succinate 100 mg PO BID 02/10/19 [History Last Taken 02/09/19] omeprazole 20 mg PO DAILY 02/10/19 [History Last Taken 02/09/19] rivaroxaban 20 mg PO DAILY 02/10/19 [History Last Taken 02/09/19] rosuvastatin 10 mg PO MOWEFR 02/10/19 [History Last Taken 02/09/19] losartan 25 mg PO DAILY #0 02/12/19 [Rx Last Taken 02/09/19] furosemide 40 mg tablet 40 mg PO DAILY #90 tab 03/16/19 [Rx Last Taken Unknown] cetirizine [Zyrtec] 10 mg PO DAILY PRN 06/28/20 [History Last Taken Unknown] hydrocodone-acetaminophen 1 tab PO Q6H PRN 3 Days #10 tab 06/28/20 [Rx Last Taken Unknown] metoclopramide HCl [Reglan] 10 mg PO Q6H PRN #10 tab 06/28/20 [Rx Last Taken Unknown] sotalol 120 mg PO BID 06/28/20 [History Last Taken Unknown] tamsulosin [Flomax] 0.4 mg PO DAILY #7 cap 06/28/20 [Rx Last Taken Unknown] Allergy/AdvReac Type Severity Reaction Status Date / Time acetaminophen [From Percocet] AdvReac Vomiting Verified 06/28/20 19:12 oxycodone [From Percocet] AdvReac Vomiting Verified 06/28/20 19:12 Family History Father CVA (cerebral vascular accident) Surgical History H/O coronary artery bypass surgery (06/11/15) History of implantable cardiac defibrillator (ICD) (10/01/11) Social History Smoking Status: Never smoker alcohol intake: former substance use type: does not use ROS ROS ED Constitutional Constitutional ED: Reports sweats; Denies chills or fever(s) Eyes Eyes: Denies change in vision ENT ENT ED: Denies sore throat Cardiovascular Cardiovascular: Denies chest pain Respiratory/Chest Respiratory/Chest: Denies cough or dyspnea Gastrointestinal Gastrointestinal: Reports abdominal pain, constipation, nausea and vomiting Genitourinary Genitourinary ED: Denies dysuria Musculoskeletal Musculoskeletal: Denies back pain Integumentary Denies rash Neurologic Neurologic: Denies headache(s) or weakness Psychiatric Psychiatric: Denies anxiety or depression Endocrine Endocrinology: Denies polydipsia or polyuria Allergic/Immunologic Allergic/Immunologic ED: Denies urticaria EXAM Physical Exam Const Vital Signs: 06/28/20 17:50 06/28/20 18:32 06/28/20 19:44 Temperature 97.2 F L Temperature Source Temporal Pulse Rate 63 65 67 Respiratory Rate 18 14 14 Blood Pressure 166/107 H 142/83 H Blood Pressure Mean 126 102 Pulse Ox 95 97 Oxygen Delivery Method Room Air Room Air Oxygen Flow Rate (L/min) 06/28/20 21:23 Temperature Temperature Source Pulse Rate 69 Respiratory Rate 16 Blood Pressure 121/76 H Blood Pressure Mean 91 Pulse Ox 94 Oxygen Delivery Method Nasal Cannula Oxygen Flow Rate (L/min) 2 Positive well nourished and well developed General Appearance ED: well developed HEENT Reports normocephalic and head/scalp atraumatic Eyes PERRL and EOMs intact bilaterally Neck supple Chest Wall inspection of chest normal and palpation of chest normal Resp normal respiratory effort and clear to auscultation bilaterally Cardio regular rate and regular rhythm GI normal to inspection, nondistended, normoactive bowel sounds Palpation: soft and tender other (Mild tenderness to the right lateral abdominal wall.) Extremity normal to inspection Neuro oriented x3 and no sensory deficits noted Sensorium / Orientation: alert Motor Exam: strength 5/5 throughout Psych mental status grossly normal Skin no rashes or lesions noted MDM MDM MDM Narrative Medical decision making narrative: Due to prolonged QT on EKG patient was given morphine and Reglan for pain. Lab work, urinalysis, and CT are obtained. Lab Data Attestation: I reviewed the patient's lab results. Labs: Laboratory Results - last 24 hr 06/28/20 06/28/20 06/28/20 18:35 18:35 20:00 WBC 9.7 RBC 5.31 Hgb 15.1 Hct 45.7 MCV 86.1 MCH 28.4 MCHC 33.0 RDW Std Deviation 40.5 RDW Coeff of Steven 13.2 Plt Count 183 MPV 10.1 Immature Gran % (Auto) 0.300 Neut % (Auto) 71.3 H Lymph % (Auto) 19.6 [place]ata[place] % (Auto) 6.9 Eos % (Auto) 1.5 Baso % (Auto) 0.4 Absolute Neuts (auto) 6.9 Absolute Lymphs (auto) 1.90 Nucleated RBC % 0 Sodium 141 Potassium 3.8 Chloride 106 Carbon Dioxide 28.0 Anion Gap 7 BUN 19 H Creatinine 1.24 Estim Creat Clear Calc 55.67 Est GFR (MDRD) Af Amer 73 Est GFR (MDRD) Non-Af 60 BUN/Creatinine Ratio 15.3 Glucose 121 H Calcium 9.3 Total Bilirubin 0.80 Direct Bilirubin 0.23 AST 13 L ALT 14 L Alkaline Phosphatase 80 Total Protein 8.3 H Albumin 3.8 Globulin 4.5 H Lipase 121 Urine Color Yellow Urine Clarity Cloudy Urine pH 6.0 Ur Specific [place] 1.020 Urine Protein 30 H Urine Glucose (UA) Normal Urine Ketones 15 H Urine Occult Blood 250 H Urine Nitrite Negative Urine Bilirubin Negative Urine Urobilinogen 1 H Ur Leukocyte Esterase 25 H Urine RBC > 100 SEEN Urine WBC 0-5 SEEN Ur Squamous Epith Cells 0-5 SEEN Urine Bacteria 0 SEEN Urine Mucus 0 SEEN Radiography Diagnostic Testing: Radiology Impression Abdomen/Pelvis CT 06/28/20 21:19 IMPRESSION: 5 mm proximal right ureteral stone with mild hydronephrosis. Electronically Signed: Anam Lea MD at 22:50 EDT Tel , Service support , EKG Initial EKG: Interpretation: Sinus Rhythm (Sinus at 67 with PACs. QTC equals 532.) Prior EKG tracings: not available for review Treatment and Re-Evaluation Comments:: On repeat evaluation patient is resting comfortably. Pain is well controlled. Test results are discussed with patient and at bedside. He has a 5 mm proximal to mid right ureter stone. Renal function is good at this time. Patient be discharged with Samir Viera Reglan. He is referred to Dr. Kay for close follow-up. Patient is given return instructions. Discharge Plan Triage Chief Complaint: Abd Pain ED Provider: Kate Ace Dx/Rx/DC Orders Clinical Impression: Ureterolithiasis Instructions: ED Kidney Stone w/ Colic Prescriptions: New hydrocodone-acetaminophen 5-325 mg tablet 1 tab PO Q6H PRN (Reason: pain) 3 Days Qty: 10 RF: 0 tamsulosin [Flomax] 0.4 mg capsule 0.4 mg PO DAILY Qty: 7 RF: 0 metoclopramide HCl [Reglan] 10 mg tablet 10 mg PO Q6H PRN (Reason: nausea and vomiting) Qty: 10 RF: 0 No Action furosemide [Lasix] 40 mg tablet 40 mg PO DAILY Qty: 90 RF: 4 nitroglycerin 0.4 MG tablet 0.4 mg SUBLINGUAL Q5M PRN (Reason: Chest Pain) RF: 0 metoprolol succinate 100 MG tablet extended release 24 hr 100 mg PO BID RF: 0 levothyroxine 75 MCG tablet 75 mcg PO DAILY RF: 0 omeprazole 20 MG capsule,delayed release(DR/EC) 20 mg PO DAILY RF: 0 aspirin 81 MG tablet,chewable 81 mg PO DAILY@0800 RF: 0 rosuvastatin 10 MG tablet 10 mg PO MOWEFR RF: 0 rivaroxaban 20 MG tablet 20 mg PO DAILY RF: 0 losartan 25 MG tablet 25 mg PO DAILY Qty: 0 RF: 0 sotalol 120 mg Tablet 120 mg PO BID RF: 0 Zyrtec 10 mg Capsule 10 mg PO DAILY PRN (Reason: Rash) RF: 0 Primary Care Provider: Tanisha Vallejo Referrals: Tanisha Vallejo MD [Primary Care Provider] - Gurpreet Kay MD [STAFF PHYSICIAN] - As soon as possible Disposition Disposition: Home, self care
[2020-06-28 23:28] VITALS: BP 121/76; PULSE 66; RESP 16; O2SAT 97
== END 2020-06-28 23:29 | disposition home or self-care (01) ==
PROVIDERS: Emergency Provider Emergency Medicine; PCP Internal Medicine
DX: N13.2 Hydronephrosis with renal and ureteral calculous obstruction (principal); I25.10 Atherosclerotic heart disease of native coronary artery without angina pectoris; I11.0 Hypertensive heart disease with heart failure; I50.42 Chronic combined systolic (congestive) and diastolic (congestive) heart failure; K21.9 Gastro-esophageal reflux disease without esophagitis; E78.5 Hyperlipidemia, unspecified; E03.9 Hypothyroidism, unspecified; I25.5 Ischemic cardiomyopathy; I48.0 Paroxysmal atrial fibrillation; I49.01 Ventricular fibrillation; Z95.1 Presence of aortocoronary bypass graft; Z79.01 Long term (current) use of anticoagulants; Z79.82 Long term (current) use of aspirin; Z79.899 Other long term (current) drug therapy
CPT/HCPCS: 74176; 80048; 80076; 81001; 83690; 85025; 93005; 96361; 96374; 96375; 99284; J7030

== ENCOUNTER 2020-06-29 10:00 | Emergency (ER) | payer MEDICARE, SELFPAY ==
[2020-06-28 17:50] VITALS: BMI 39.8
[2020-06-29 10:01] VITALS: BP 149/78; PULSE 60; RESP 18; TEMP 36.6; O2SAT 96; BMI 40.4
[2020-06-29 10:03] VITALS: BP 149/78; PULSE 60; RESP 18; TEMP 36.6; O2SAT 96
--- NOTE | 2020-06-29 10:47 | EDS_ITS ---
HPI HPI - GI History of Present Illness Chief Complaint: Flank Pain Informant: patient and spouse/S.O. Abdominal Pain/Flank Pain Onset: Yesterday Context: Sudden Onset Timing: Intermittent Quality: Sharp and Stabbing Current Severity: Mild Maximum Severity: Moderate Nausea/Vomiting/Emesis GI Symptom: Positive for Nausea and Vomiting Onset: Today and Yesterday Quality: Positive for Nonbilious Severity: Mild Associated Symptoms Associated Symptoms: Negative for Dysuria and Frequency Narrative Narrative: 74-year-old male history of A. fib with pacemaker defibrillator, CAD and prior kidney stones but none have ever needed to be removed surgically. Yesterday evening he developed right flank pain was seen in the emergency department had a work-up showing a 5 mm ureteral stone and was discharged home with his pain under control with home medications [place], Zofran and Flomax. Patient said he did well through most of the night and 5 AM this morning his pain seemed to increase. He denies any fever. He denies any dysuria. Prior similar symptoms: Yes Recent Illness/Hospitalization: No PFSH PFSH Medical History (Updated 06/29/20 @ 11:[address] Salty Bernstein MD) Atherosclerotic heart disease of [place] coronary artery without angina pectoris Chronic combined systolic and diastolic CHF (congestive heart failure) Dyspnea on exertion Essential hypertension GERD (gastroesophageal reflux disease) Hyperlipidemia Hypothyroidism Ischemic cardiomyopathy Obstructive sleep apnea Other and unspecified peripheral vertigo Paroxysmal atrial fibrillation Sudden cardiac (2011) Supraventricular arrhythmia Ventricular fibrillation Home Medications nitroglycerin 0.4 mg SUBLINGUAL Q5M PRN 07/22/15 [History Last Taken Unknown] aspirin 81 mg PO DAILY@0800 02/10/19 [History Last Taken 02/09/19] levothyroxine 75 mcg PO DAILY 02/10/19 [History Last Taken 02/09/19] metoprolol succinate 100 mg PO BID 02/10/19 [History Last Taken 02/09/19] omeprazole 20 mg PO DAILY 02/10/19 [History Last Taken 02/09/19] rivaroxaban 20 mg PO DAILY 02/10/19 [History Last Taken 02/09/19] rosuvastatin 10 mg PO MOWEFR 02/10/19 [History Last Taken 02/09/19] losartan 25 mg PO DAILY #0 02/12/19 [Rx Last Taken 02/09/19] furosemide 40 mg tablet 40 mg PO DAILY #90 tab 03/16/19 [Rx Last Taken Unknown] cetirizine [Zyrtec] 10 mg PO DAILY PRN 06/28/20 [History Last Taken Unknown] hydrocodone-acetaminophen 1 tab PO Q6H PRN 3 Days #10 tab 06/28/20 [Rx Last Taken Unknown] metoclopramide HCl [Reglan] 10 mg PO Q6H PRN #10 tab 06/28/20 [Rx Last Taken Unknown] sotalol 120 mg PO BID 06/28/20 [History Last Taken Unknown] tamsulosin [Flomax] 0.4 mg PO DAILY #7 cap 06/28/20 [Rx Last Taken Unknown] Allergy/AdvReac Type Severity Reaction Status Date / Time acetaminophen [From Percocet] AdvReac Vomiting Verified 06/29/20 10:04 oxycodone [From Percocet] AdvReac Vomiting Verified 06/29/20 10:04 Family History Father CVA (cerebral vascular accident) Surgical History H/O coronary artery bypass surgery (06/11/15) History of implantable cardiac defibrillator (ICD) (10/01/11) Social History Smoking Status: Never smoker alcohol intake: former substance use type: does not use ROS ROS ED ROS Narrative Nausea and vomiting associated with his right flank pain. Review of Systems ROS Unobtainable: Denies due to encephalopathy Constitutional Constitutional ED: Denies chills or fever(s) ENT ENT ED: Denies ear pain or sore throat Cardiovascular Cardiovascular: Denies chest pain Respiratory/Chest Respiratory/Chest: Denies cough or dyspnea Gastrointestinal Gastrointestinal: Reports abdominal pain, diarrhea, nausea and vomiting Genitourinary Genitourinary ED: Denies dysuria or urinary frequency Musculoskeletal Musculoskeletal: Denies arthralgias or myalgias Integumentary Denies rash Neurologic Neurologic: Denies headache(s) Psychiatric Psychiatric: Denies depression Endocrine Endocrinology: Denies polyuria Hematologic/Lymphatic Hematologic/Lymphatic: Denies easy bruising Allergic/Immunologic Allergic/Immunologic ED: Denies urticaria EXAM Physical Exam Narrative Exam Narrative: Older male no acute distress. at bedside. Vital signs are stable afebrile. He does not look septic or toxic. He does not look dehydrate d. Lungs are clear. Heart regular rate about 60. Abdomen soft nontender normal bowel sounds no peritoneal signs. Patient moving all 4 extremities. No edema. Neurologically is awake and alert with no focal motor deficits. Const Vital Signs: 06/29/20 10:01 06/29/20 10:03 Temperature 97.9 F 97.9 F Temperature Source Temporal Temporal Pulse Rate 60 60 Respiratory Rate 18 18 Blood Pressure 149/78 H 149/78 H Blood Pressure Mean 101 101 Pulse Ox 96 96 Oxygen Delivery Method Room Air Room Air HEENT normocephalic and atraumatic; Negative for trauma Eyes PERRL and EOMs intact bilaterally Neck no lymphadenopathy, supple and no JVD Resp normal respiratory effort and clear to auscultation bilaterally Cardio regular rate and no murmurs GI non-tender, non-distended and no masses Auscultation: normoactive bowel sounds Palpation: soft; Negative for tender Back/Spine no CVA tenderness Extremity full ROM General Extremety ED: Negative for edema or tenderness General Extremity: Negative for edema Neuro CN's II-XII intact bilaterally and moves all extremities Sensorium / Orientation: alert, oriented to person, oriented to place and oriented to time Psych mental status grossly normal Skin Rashes: no rashes MDM MDM MDM Narrative Medical decision making narrative: 74-year-old male diagnosed with a right ureteral calculi 5 mm yesterday. Will be treated with IV morphine and IV Zofran for pain. I will review his work-up from yesterday. I do not think he needs repeat imaging. I reviewed the patient's CBC, BMP, UA and CT from yesterday. UA showed blood but no infection. CBC and chemistries were unremarkable. He had good renal function. CT showed a 5 mm proximal ureteral stone with hydro-. I discussed these with the patient and his . Repeat exam patient doing well at 11:36 AM. Received IV morphine and Zofran. Patient is doing well. We will continue his pain medications at home and follow-up with his urologist. Lab Data Attestation: I reviewed the patient's lab results. Discharge Plan Triage Chief Complaint: Flank Pain ED Provider: Salty eBrnstein Dx/Rx/DC Orders Clinical Impression: Ureterolithiasis Instructions: ED Kidney Stone w/ Colic Prescriptions: No Action furosemide [Lasix] 40 mg tablet 40 mg PO DAILY Qty: 90 RF: 4 nitroglycerin 0.4 MG tablet 0.4 mg SUBLINGUAL Q5M PRN (Reason: Chest Pain) RF: 0 metoprolol succinate 100 MG tablet extended release 24 hr 100 mg PO BID RF: 0 levothyroxine 75 MCG tablet 75 mcg PO DAILY RF: 0 omeprazole 20 MG capsule,delayed release(DR/EC) 20 mg PO DAILY RF: 0 aspirin 81 MG tablet,chewable 81 mg PO DAILY@0800 RF: 0 rosuvastatin 10 MG tablet 10 mg PO MOWEFR RF: 0 rivaroxaban 20 MG tablet 20 mg PO DAILY RF: 0 losartan 25 MG tablet 25 mg PO DAILY Qty: 0 RF: 0 sotalol 120 mg Tablet 120 mg PO BID RF: 0 Zyrtec 10 mg Capsule 10 mg PO DAILY PRN (Reason: Rash) RF: 0 hydrocodone-acetaminophen 5-325 mg tablet 1 tab PO Q6H PRN (Reason: pain) 3 Days Qty: 10 RF: 0 tamsulosin [Flomax] 0.4 mg capsule 0.4 mg PO DAILY Qty: 7 RF: 0 metoclopramide HCl [Reglan] 10 mg tablet 10 mg PO Q6H PRN (Reason: nausea and vomiting) Qty: 10 RF: 0 Primary Care Provider: Tanisha Vallejo Referrals: Tanisha Vallejo MD [Primary Care Provider] - Gurpreet Kay MD [STAFF PHYSICIAN] - As soon as possible Activity Restrictions/Additional Instructions: Plenty of fluids and rest. [place] for pain up to 2 every 4 hours but you may not need that much. Plenty of fiber to prevent constipation. Zofran as needed for nausea. Follow-up with your urologist as needed. Disposition Disposition: Home, self care
[2020-06-29] MEDS: Ondansetron 4 MG/2 ML Vial IV ×2 (11:21→13:24)
[2020-06-29] MEDS: morphine 10 MG/ML Syringe 8 MG SC (11:21)
[2020-06-29] MEDS: morphine 8 MG/ML Syringe 6 MG IV (13:24)
[2020-06-29 13:31] VITALS: BP 137/78; PULSE 62; RESP 16; O2SAT 91
--- NOTE | 2020-06-29 14:03 | ED.RN ---
THIS RN IN TO DISCHARGE PT, PT STATES FEELS SLEEPY AND FAINT AT TIMES. PT DID RECIEVE MORPHINE. WHILE AT BEDSIDE PT FALLS ASLEEP PULSE OX DROPS TO 89. THIS RN REMINDS PT TO BREATH AND PULSE OX RETURNS TO NORMAL
[2020-06-29 14:57] VITALS: BP 143/90; PULSE 62; RESP 16; O2SAT 95
== END 2020-06-29 14:59 | disposition home or self-care (01) ==
PROVIDERS: Emergency Provider Emergency Medicine; PCP Internal Medicine
DX: N13.2 Hydronephrosis with renal and ureteral calculous obstruction (principal); I25.10 Atherosclerotic heart disease of native coronary artery without angina pectoris; I25.5 Ischemic cardiomyopathy; I10 Essential (primary) hypertension; I49.01 Ventricular fibrillation; I48.0 Paroxysmal atrial fibrillation; E03.9 Hypothyroidism, unspecified; E78.5 Hyperlipidemia, unspecified; K21.9 Gastro-esophageal reflux disease without esophagitis; Z79.82 Long term (current) use of aspirin; Z79.01 Long term (current) use of anticoagulants; Z79.899 Other long term (current) drug therapy; Z87.442 Personal history of urinary calculi; Z87.891 Personal history of nicotine dependence
CPT/HCPCS: 96372; 96374; 96375; 96376; 99283; A4216; J2405